=== PATIENT | male | born 1995 | race Caucasian/White ===

== ENCOUNTER 2021-11-19 07:29 | Emergency (ER) | payer OTHER ==
[2021-11-19 07:57] LABS: BILIRUBIN NEGATIVE (NEGATIVE); BLOOD 3+ Ery/uL (NEGATIVE); CLARITY CLEAR (CLEAR); COLOR YELLOW (YELLOW); GLUCOSE (U) NORMAL (NORMAL); LEUKOCYTES NEGATIVE Leu/uL (NEGATIVE); NITRITE NEGATIVE (NEGATIVE); PROTEIN TRACE (LOW) mg/dL (NEGATIVE); SPECIFIC GRAVITY 1.015 (1.001-1.030); UROBILINOGEN 0.2 mg/dL (0.2-1.0); pH 7.5 (5.0-9.0)
[2021-11-19 08:03] LABS: BASOPHIL 0.3 % (0-2); EOSINOPHIL 0.1 % (0-5); HCT 50.5 % (42.0-52.0); HGB 17.6 g/dl (13.2-18.0); LYMPHOCYTE 8.5 % (15-48); MCH 30.2 pg (25.0-31.0); MCHC 34.9 g/dL (32.0-36.0); MCV 86.6 fL (78.0-100.0); MONOCYTE 5.2 % (0-12); MPV 10.9 fL (6.0-9.5); NEUTROPHIL 85.4 % (41-80); NRBC 0; PLT 204 K/uL (150-400); RBC 5.83 M/uL (4.70-6.00); RDW 12.2 % (11.5-14.0); WBC 13.3 K/uL (4.0-10.5)
[2021-11-19 08:05] LABS: SQUAMOUS EPITHELIAL CELLS RARE; URINARY RBC 20-50; URINARY WBC RARE
[2021-11-19 08:20] LABS: ALBUMIN 4.9 g/dL (3.4-5.0); BILIRUBIN - TOTAL 0.8 mg/dL (0.2-1.0); BUN/CREAT RATIO (CALC) 12.2 RATIO; CREATININE 1.23 mg/dL (0.67-1.17); GLOBULIN (CALCULATION) 2.9 g/dL; POTASSIUM 3.7 mmol/L (3.5-5.1); TOTAL PROTEIN 7.8 g/dL (6.4-8.2)
[2021-11-19] MEDS ORDERED: NORCO 5-325 TA1 EACH PO (08:46)
[2021-11-19] MEDS ORDERED: ONDANSETRON ODT4 MG PO (08:46)
[2021-11-19] MEDS ORDERED: NAPROXEN500 MG PO (08:46)
[2021-11-19] MEDS ORDERED: FLOMAX 0.4 MG0.4 MG PO (08:46)
== END 2021-11-19 09:20 | disposition home or self-care (01) ==
LOC: FER 07:29
PROVIDERS: Emergency Medicine
DX: N13.2 Hydronephrosis with renal and ureteral calculous obstruction (principal); Z88.1 Allergy status to other antibiotic agents; Z91.030 Bee allergy status
CPT/HCPCS: 36415; 80053; 81001; 85025; J1885; J2405; J7030